=== PATIENT | male | born 1965 | race Caucasian/White ===

== ENCOUNTER 2016-11-11 09:31 | Emergency (ER) | payer OTHER ==
[~2016-11-11] VITALS: Ht 177.8 cm; Wt 100.0 kg
[~2016-11-11 09:31] MED LIST: CHLO25CA2 PO
[2016-11-11 09:33] VITALS: BP 130/67; PULSE 90; RESP 16; TEMP 98.3; O2SAT 95
--- NOTE | 2016-11-11 10:53 | PD ---
HPI Chief Complaint: Cold / Flu Symptoms Time Seen by Provider: 10:05 Travel History International Travel<30 days: No Contact w/Intl Traveler<30days: No Traveled to known affect area: No History of Present Illness HPI This is a 50-year-old male who presents to the emergency department with cough for 5 days, fevers and chills, body aches and muscle pains. Patient reports that he has been feeling very weak and fatigued. Over the weekend he tried to go out and ended up passing out twice. [facility] came to evaluate him that he said he felt fine and just wanted to go home and rest. Today he continues to feel sick. He says he's been up coughing all night. He has some brown sputum production. He denies any sore throat or rhinorrhea. He denies any diarrhea or vomiting. He does smoke cigarettes. [facility] Past Medical History Medical History: Denies Significant Hx Diminished Hearing: No Tetanus Vaccination: < 5 Years Influenza Vaccination: No Social History Alcohol Use: No (QUIT 1 1/2 YRS AGO) Tobacco Use: Yes (1 PPD) Substance Use: No Allergies-Medications (Allergen,Severity, Reaction): Coded Allergies: Penicillin (Verified Allergy, Unknown, 11/11/16) told as child Reported Meds & Prescriptions Reported Meds & Active Scripts Active No Active Prescriptions or Reported Medications Review of Systems Except as stated in HPI: all other systems reviewed are Neg Physical Exam Narrative GENERAL:Well appearing, no acute distress SKIN: Warm and dry. HEAD: Atraumatic. Normocephalic. EYES: Pupils equal and round. No injection or drainage. ENT: Moist mucous membranes NECK: Trachea midline. CARDIOVASCULAR: Regular rate and rhythm. No murmur appreciated. RESPIRATORY: Clear to auscultation. Breath sounds equal bilaterally. GASTROINTESTINAL: Abdomen soft, non-tender, nondistended. MUSCULOSKELETAL: No obvious deformities. NEUROLOGICAL: Awake and alert. No obvious cranial nerve deficits. Moving all extremities. PSYCHIATRIC: Appropriate mood and affect; insight and judgment normal. Data Data Last Documented VS Vital Signs Date Time Temp Pulse Resp B/P Pulse Ox O2 Delivery O2 Flow Rate FiO2 11/11/16 11:32 60 18 121/72 96 11/11/16 09:33 98.3 Orders Electrocardiogram (11/11/16 ) Complete Blood Count With Diff (11/11/16 10:51) Basic Metabolic Panel (Bmp) (11/11/16 10:51) Sodium Chlor 0.9% 1000 Ml Inj (Ns 1000 M (11/11/16 11:00) Sodium Chlor 0.9% 1000 Ml Inj (Ns 1000 M (11/11/16 11:00) Ketorolac Inj (Toradol Inj) (11/11/16 11:00) Labs Laboratory Tests Test 11/11/16 10:50 White Blood Count 2.6 TH/MM3 Red Blood Count 4.54 MIL/MM3 Hemoglobin 14.7 GM/DL Hematocrit 41.7 % Mean Corpuscular Volume 91.9 FL Mean Corpuscular Hemoglobin 32.4 PG Mean Corpuscular Hemoglobin 35.2 % Concent Red Cell Distribution Width 12.6 % Platelet Count 196 TH/MM3 Mean Platelet Volume 7.8 FL Neutrophils (%) (Auto) 30.1 % Lymphocytes (%) (Auto) 57.6 % Monocytes (%) (Auto) 11.3 % Eosinophils (%) (Auto) 0.4 % Basophils (%) (Auto) 0.6 % Neutrophils # (Auto) 0.8 TH/MM3 Lymphocytes # (Auto) 1.5 TH/MM3 Monocytes # (Auto) 0.3 TH/MM3 Eosinophils # (Auto) 0.0 TH/MM3 Basophils # (Auto) 0.0 TH/MM3 CBC Comment AUTO DIFF Differential Total Cells 100 Counted Neutrophils % (Manual) 28 % Band Neutrophils % 2 % Lymphocytes % 62 % Monocytes % 8 % Neutrophils # (Manual) 0.8 TH/MM3 Differential Comment FINAL DIFF MANUAL Platelet Estimate NORMAL Platelet Morphology Comment NORMAL Red Cell Morphology Comment NORMAL Sodium Level 137 MEQ/L Potassium Level 3.7 MEQ/L Chloride Level 102 MEQ/L Carbon Dioxide Level 26.3 MEQ/L Anion Gap 9 MEQ/L Blood Urea Nitrogen 8 MG/DL Creatinine 0.77 MG/DL Estimat Glomerular Filtration 107 ML/MIN Rate Random Glucose 78 MG/DL Calcium Level 8.4 MG/DL [facility] Medical Decision Making Medical Screen Exam Complete: Yes Emergency Medical Condition: Yes Interpretation(s) Afebrile, no tachycardia, normotensive Leukopenia 62% lymphocytes Electrolytes are reassuring Differential Diagnosis Viral syndrome, influenza, pneumonia, bronchitis, lymphoma, leukemia Narrative Course This is a 50-year-old male who presents to the emergency department having had myalgias, fevers, chills and cough for 5 days associated with 2 episodes of syncope over the weekend. He was placed on a monitor and an IV was established. He was given 2 L of IV hydration. EKG was reassuring. Labs demonstrate some leukopenia with a lymphocytic predominance. I think this is just in the setting of a viral syndrome however it is not impossible that the patient has an underlying hematologic malignancy. I discussed this with the patient and urged him to follow-up with a primary care physician for repeat labs in 1-2 weeks when his symptoms resolved. Patient will be discharged home. Diagnosis Primary Impression: Viral syndrome Patient Instructions: General Instructions Additional Instructions: If you develop severe chest pain, shortness of breath, sweating, lightheadedness , dizziness or difficulty breathing return to the emergency department immediately. Follow-up with your primary care physician in one to 2 weeks for repeat blood work to check your white blood cell count. Med/Other Pt SpecificInfo: Prescription(s) given Scripts Albuterol 6.7 GM Inh (Proventil Hfa 6.7 GM Inh)90 Mcg/Act Aer2 Puff INH Q4-6H PRN (SHORTNESS OF BREATH) #1 INHALER Ref 0 Prov:Charis Carmona MD 11/11/16 Promethazine-Codeine Liq 6.25-10 Mg/5 Ml Syrp5 Ml PO Q4H PRN (COUGH AND/OR COLD SYMPTOMS) #120 ML Prov:Charis Carmona MD 11/11/16 Disposition: 01 DISCHARGE HOME Condition: Stable Charis Carmona MD Nov 11, 2016 10:53
[2016-11-11] MEDS ORDERED: KETOROLAC TROMETHAMINE 30 MG/ML (IVP) VIAL IV PUSH ONE (11:00)
[2016-11-11] MEDS ORDERED: SODIUM CHLOR 0.9% 1000 ML INJ 1,000 ML IV ONE ×2 (11:00)
[2016-11-11 11:14] LABS: AUTOMATED NEUTROPHIL # 0.8 TH/MM3 (1.8-7.7); BASOPHIL % 0.6 % (0.0-2.0); EOSINOPHIL % 0.4 % (0.0-4.0); HEMATOCRIT 41.7 % (39.0-51.0); LYMPH % 57.6 % (9.0-44.0); LYMPHOCYTE # 1.5 TH/MM3 (1.0-4.8); MEAN CELL VOLUME 91.9 FL (80.0-100.0); MEAN CORPUSCULAR HEMOGLOBIN 32.4 PG (27.0-34.0); MEAN CORPUSCULAR HGB CONC 35.2 % (32.0-36.0); MONO % 11.3 % (0.0-8.0); NEUT % 30.1 % (16.0-70.0); PLATELET COUNT 196 TH/MM3 (150-450); RED BLOOD COUNT 4.54 MIL/MM3 (4.50-5.90); RED CELL DISTRIBUTION WIDTH 12.6 % (11.6-17.2); WHITE BLOOD COUNT 2.6 TH/MM3 (4.0-11.0)
[2016-11-11 11:19] LABS: HEMO FLAGS AUTO DIFF
[2016-11-11 11:29] LABS: BICARBONATE 26.3 MEQ/L (21.0-32.0); POTASSIUM 3.7 MEQ/L (3.5-5.1)
[2016-11-11 11:32] VITALS: BP 121/72; PULSE 60; RESP 18; O2SAT 96
[2016-11-11 11:50] LABS: BANDS 2 % (0-6); NEUTROPHIL # MANUAL DIFF 0.8 TH/MM3 (1.8-7.7); PLATELET ESTIMATE SMEAR NORMAL (NORMAL); PLATELET MORPHOLOGY NORMAL (NORMAL); POLYS (SEG NEUTROPHILS) 28 % (16-70); SCAN/DIFF FINAL DIFF MANUAL; WBC DIFF SAMPLE 100
[2016-11-11] MEDS ORDERED: ALBU6.7H INH (12:01)
[2016-11-11] MEDS ORDERED: PROM6.256 PO (12:01)
[2016-11-11 12:04] VITALS: BP 126/84; PULSE 61; RESP 20; O2SAT 97
--- NOTE | 2016-11-11 18:21 | EKG ---
Date Performed: 11/11/2016 Time Performed: 10:34:47 PTAGE: 50 years EKG: Sinus rhythm Since previous tracing, no significant change noted NORMAL ECG PREVIOUS TRACING : 04/06/2015 12.56 DOCTOR: Cesia Pérez Interpretating Date/Time 11/11/2016 18:19:18
== END 2016-11-11 12:42 | disposition home or self-care (01) ==
LOC: NEPC 09:31
DX: B34.9 Viral infection, unspecified (principal); R53.83 Other fatigue; R55 Syncope and collapse; D72.819 Decreased white blood cell count, unspecified; F17.200 Nicotine dependence, unspecified, uncomplicated
CPT/HCPCS: 80048; 85007; 85027; 93005; 96361; 96374; 99283; J1885; J7030

== ENCOUNTER 2017-09-29 07:00 | Inpatient (IN) | payer OTHER ==
[~2017-09-29] VITALS: Ht 177.8 cm; Wt 98.8 kg
[2017-10-10] MEDS ORDERED: TRAM50TA PO (09:32)
[2017-10-27] MEDS ORDERED: SODIUM CHLORID 0.9% 500 ML IV PRN (08:00)
[2017-10-27] MEDS ORDERED: INSULIN HUMAN REGULAR 1,000 UNITS/10 ML VIAL SQ PRN (08:00)
[2017-10-27] MEDS ORDERED: POVIDONE IODINE 7.5% SCRUB 118 ML BOTTLE TOPICAL SCH (08:00)
[2017-10-27] MEDS ORDERED: CHLORHEXIDINE GLUCONATE 4% SOLN 120 ML BTL TOPICAL SCH (08:00)
[2017-10-27] MEDS ORDERED: TRANEXAMIC PERI-ARTICULAR 3,000 MG/NS 100 ML P-ARTICULR SCH ×2 (08:00)
[2017-10-27] MEDS ORDERED: CHLORHEXIDINE GLUCONATE 2 % 1 PACK (2 CLOTHS) TOPICAL PRN (08:00)
[2017-10-27] MEDS ORDERED: METOPROLOL TARTRATE 25 MG TAB PO PRN (08:00)
[2017-10-27] MEDS ORDERED: LACTATED RINGER'S 1000 ML IV PRN (08:00)
[2017-10-27] MEDS ORDERED: EXPAREL PERI-ARTICULAR INJECTION (TOTAL VOL. 60 ML) P-ARTICULR SCH ×2 (08:00)
[2017-10-27] MEDS ORDERED: TRANEXAMIC ACID IV SCH (08:00)
[2017-10-27] MEDS ORDERED: SODIUM CHLORIDE 0.9% IV SCH (08:00)
[2017-10-27] MEDS ORDERED: POVIDONE IODINE 5% (ANTISEPSIS KIT) 4 APPLICATIONS EACH NARE PRN (08:00)
[2017-10-27] MEDS ORDERED: DEXAMETHASONE SOD PHOS 20 MG/5 ML VIAL IV SCH (08:00)
[2017-10-27] MEDS ORDERED: VANCOMYCIN 1000 MG/NS 250 ML (for <70 kg) IV SCH ×2 (08:00)
[2017-10-27] MEDS ORDERED: GENTAMICIN SULFATE 80 MG/2 ML VIAL ONE (08:12)
[2017-10-27] MEDS ORDERED: BISACODYL 10 MG SUPP RECTAL PRN (08:30)
[2017-10-27] MEDS ORDERED: ACETAMINOPHEN/HYDROcodone 325 MG/7.5 MG TAB PO PRN (08:30)
[2017-10-27] MEDS ORDERED: ZOLPIDEM TARTRATE 5 MG TAB PO PRN (08:30)
[2017-10-27] MEDS ORDERED: ONDANSETRON HCL 4 MG/2 ML VIAL IVP PRN (08:30)
[2017-10-27] MEDS ORDERED: diphenhydrAMINE HCL 50 MG/ML VIAL IV PUSH PRN (08:30)
[2017-10-27] MEDS ORDERED: HYDR-3288 PO (08:32)
[2017-10-27] MEDS ORDERED: ENOX40P SQ (08:32)
[2017-10-27] MEDS ORDERED: ASPI81CH6 CHEW (08:33)
[2017-10-27] MEDS ORDERED: SODIUM CHLORIDE 0.9% INJ 100 ML ONE (08:50)
[2017-10-27] MEDS ORDERED: ACETAMINOPHEN 1000 MG/100 ML 100 ML IV ONE (08:56)
[2017-10-27] MEDS ORDERED: CLINDAMYCIN 900 MG/NS 100 ML IV SCH ×2 (09:00)
[2017-10-27] MEDS ORDERED: FAMOTIDINE 20 MG/2 ML VIAL ONE (09:16)
--- NOTE | 2017-10-27 11:33 | PD.CONS ---
HPI Service [facility] Hospitalists Consult Requested By Dr. Kevin Sawyer Reason for Consult Medical management Primary Care Physician Nash Garcia MD Diagnoses: History of Present Illness Mr. Ross is a pleasant 51 y/o male with osteoarthritis and lumbar degenerative disc disease. He was admitted to [facility] on 10/27/17 for left total hip arthroplasty with Dr. Sawyer. The [facility] Hospitalist team was consulted to help with medical management. Pt is seen post-operatively. Past Family Social History Past Medical History Osteoarthritis Lumbar degenerative disc disease with radiculopathy Tobacco use Hx of alcohol abuse, none for 2 years Past Surgical History Left hip surgery x 2 Reported Medications Tramadol 50 Mg PO Q6H PRN Allergies: Coded Allergies: penicillin G (Verified Allergy, Unknown, 10/27/17) told as child Family History Mother with hx of lung cancer Father with hx of CAD Social History Hx of alcohol abuse, none for the last 2 years (+)Tobacco use, 1/2-1ppd x 30+ years Denies any illicit drug use Physical Exam Vital Signs Vital Signs Date Time Temp Pulse Resp B/P (MAP) Pulse Ox O2 Delivery O2 Flow Rate FiO2 10/27/17 07:40 98.4 62 20 139/84 (102) 96 Physical Exam GENERAL: This is a well-nourished, well-developed patient, in no apparent distress. HEENT: Atraumatic. Normocephalic. No temporal or scalp tenderness. No scleral icterus. Airway patent. NECK: Trachea midline, supple, nontender. CARDIO: Regular. RESP: CTA bilaterally. No wheezes, rales, or rhonchi. ABD: +BS, soft, non-tender, nondistended. EXT: Left hip bandages are c/d/i NEURO: Awake and alert. Motor and sensory grossly within normal limits. Normal speech. Assessment and Plan Problem List: (1) Primary localized osteoarthrosis, pelvic region and thigh ICD Codes: M16.10 - Unilateral primary osteoarthritis, unspecified hip Status: Chronic Plan: - Pt is a 51 y/o male with primary osteoarthritis and chronic back pain - He was admitted to [facility] on 10/27/17 for left total hip arthroplasty with Dr. Sawyer - Post-op pain control per Ortho - IS every hour while awake - PT daily - Constipation precautions - Offered nicotine patch to the pt - DVT prophylaxis with Lovenox Tracie Meade Oct 27, 2017 11:33
[2017-10-27] MEDS ORDERED: Post-op Orders (for Pharmacy) XX ONE (11:43)
--- NOTE | 2017-10-27 11:45 | HHI.DCPOC ---
Discharge Care Plan Diagnosis: (1) Primary localized osteoarthrosis, pelvic region and thigh Your Health Problems Are: Difficulty with ADL Goals to Promote Your Health * To prevent worsening of your condition and complications * To maintain your health at the optimal level Directions to Meet Your Goals Take your medications as prescribed Follow your dietary instruction Follow activity as directed Keep your appointments as scheduled Take your immunizations and boosters as scheduled If your symptoms worsen call your PCP, if no PCP go to Urgent Care Center or Emergency Room Smoking is Dangerous to Your Health. Avoid second hand smoke Call the 24-hour hour crisis hotline for domestic abuse at Kevin Potts Oct 27, 2017 11:45
--- NOTE | 2017-10-27 11:46 | HHI.FF ---
Face to Face Verification Diagnosis: (1) Primary localized osteoarthrosis, pelvic region and thigh Physical Therapy Gait training, Safety evaluation, Transfer training, bed to chair Hip: Total hip, Protocol: Left Left LE Weight Bearing: WB as tolerated Nursing RN: 3 days/week x 2 weeks Nursing: Isaac teaching, Dressing changes Dressing Changes: Daily dressing change Additional Instructions ok to maintain dressing unless saturated, then daily dressing changes I have seen patient Frantz Ross on 10/27/17. My clinical findings support the need for the requested home health care services because: Limited ability to care for self High risk of falls I certify that my clinical findings support that this patient is homebound because: Post-op weakness Unsteady gait/balance Kevin Potts Oct 27, 2017 11:46
[2017-10-27] MEDS ORDERED: DO NOT ADM ANY ANTICOAGULANT DRUGS PRN (11:48)
[2017-10-27] MEDS ORDERED: MIDAZOLAM HCL 2 MG/2 ML VIAL ONE (11:55)
[2017-10-27] MEDS: SODIUM CHLOR 0.9% 1000 ML INJ 1,000 ML IV SCH ×2 (12:00→23:00)
--- NOTE | 2017-10-27 12:19 | MP ---
cc: CATRINA AGUILAR M.D. DATE OF SURGERY: 10/27/2017 PREOPERATIVE DIAGNOSIS Left hip osteoarthritis. POSTOPERATIVE DIAGNOSIS Left hip osteoarthritis. PROCEDURE Left total hip arthroplasty. SURGEON Dr. Catrina Aguilar. LOCAL SALES ASSOCIATE ARIANA Elaine. ANESTHESIA General. ESTIMATED BLOOD LOSS 300 cc. COMPLICATIONS None. IMPLANTS USED DePuy Corail, size 12 Press-Fit standard offset femoral stem, size 54 solid [place] Gription cup, size 36 mm neutral highly crosslinked polyethylene liner, size 36 mm ceramic head, +5 neck. JUSTIFICATION This patient is a 51-year-old male with a history of severe osteoarthritis involving the left hip. He has severe disabling pain with standing, walking, ambulation, weightbearing activities and even severe pain at rest. He has failed greater than three months of nonoperative conservative treatment to include medication therapy, injections, ambulatory assisted aids, home exercise program and activity modification. X-rays of the left hip reveal severe end-stage osteoarthritis with [id number] joint space narrowing, subchondral sclerosis, subchondral cysts, osteophyte formation with subluxation. The patient was counseled as to the risks, benefits and alternatives to a total hip arthroplasty. The risks were discussed which include but not limited to anesthesia, bleeding, infection, damage to nerves and blood vessels, pain, stiffness, fracture-dislocation, left length discrepancies, blood clots, pulmonary embolism and even . The patient's pain is severe. He favored the benefits over the risks did wish to proceed with surgery. PROCEDURE IN DETAIL A written consent was obtained. The patient was identified by name, taken to the operating room and placed supine on the operating table. General anesthesia was administered as well as two grams of IV Ancef and one gram of IV vancomycin. The left and right feet were placed in padded traction boots. All bony prominences and pressure points were well-padded. The left hip and left lower extremity were prepped and draped using isopropyl alcohol, Hibiclens solution and ChloraPrep solution. After a timeout was performed a longitudinal incision was made over the anterolateral aspect of the left hip. The fascial layer was incised. Dissection was carried over the tensor fascia trinity beneath the rectus femoris to allow exposure of the anterior capsule. A capsulotomy incision was performed. An oscillating saw was used to perform a femoral neck cut. The osteoarthritic femoral head and neck couple was removed. A 10 blade scalpel was used to excise the labrum. Sequential reaming began at size 49 and was carried through to size 54. Subsequently a solid [place] Gription cup was implanted to approximately 45 degrees of abduction and 10 degrees of anteversion. There was good purchase and fixation after insertion of the cup. A screw hole eliminator was placed followed by the neutral polyethylene liner. The liner was impacted in place and tested for stability. Attention was turned to the femur where the leg was externally rotated, extended and adducted. The capsule was released off the undersurface of the greater trochanter to allow for elevation and lateralization of the femur. A box cutting osteotome was used to gain entrance into the intramedullary canal of the femur followed by canal finder and sequential broaching up to size 12. A calcar planar was used to plane the calcar. Trial head and neck combinations were evaluated and final components were then implanted. With the current components the leg could achieve external rotation to 70 degrees and extension all the down to the ground without evidence of anterior instability or impingement. Soft tissue tension felt appropriate. Fluoroscopic imaging showed appropriate implantation of components. The surgical wound was thoroughly irrigated with sterile saline pulse lavage antibiotic-impregnated solution. The fascial layer was closed with #1 Vicryl suture, the subcutaneous layer with 2-0 Vicryl suture, and skin was closed with Dermabond. Sterile dressing was applied. The patient tolerated the procedure well with no intraoperative complications noted. Jayy Potts, physician promotional advertising assistant certified, was present during the entire procedure to include patient positioning and the procedure itself. The medical necessity of a physician promotional advertising assistant was indicated in this case due to the complexity of the procedue. He assisted with appropriate manipulation of the leg and also retraction of muscle, tendon, bone and neurovascular structures. He assisted with preparation of bone and also implantation of the prosthetic replacement. MD DOMENICO Islas/JADEN /11:17 AM /12:01 PM
[2017-10-27] MEDS ORDERED: *morphine SULFATE 8 MG/ML PERIprocedure ONLY ONE ×2 (12:56→13:57)
--- NOTE | 2017-10-27 13:14 | RADRPT ---
EXAM DATE/TIME: 10/27/2017 12:27 [facility] COMPARISON: No previous studies available for comparison. INDICATIONS : Post op left hip arthroplasty. MEDICAL HISTORY : None. SURGICAL HISTORY : Left hip surgery. ENCOUNTER: Initial ACUITY: 1 day PAIN SCORE: 4/10 LOCATION: Left hip FINDINGS: The patient is status post a total hip arthroplasty with a bipolar prosthesis. Prosthesis is well-[place] michael. Alignment is anatomic. A fracture is not appreciated. CONCLUSION: Anatomic alignment. Jas Sow MD FACR Jas Sow MD FACR on October 27, 2017 at 13:10 Board Certified Radiologist. This report was verified electronically.
--- NOTE | 2017-10-27 13:24 | RADRPT ---
EXAM DATE/TIME: 10/27/2017 09:59 [facility] COMPARISON: No previous studies available for comparison. INDICATIONS : Left total hip replacement in OR. MEDICAL HISTORY : None. SURGICAL HISTORY : None. ENCOUNTER: Initial ACUITY: 1 day PAIN SCORE: Non-responsive. LOCATION: Left hip FINDINGS: 2 views of the hip reveal a total hip prosthesis in good position. No fracture or dislocation is obse rved. A small amount of air is seen within the joint. Soft tissue swelling is noted. CONCLUSION: Total hip prosthesis in good position. Mauricio Williamson Jr., MD on October 27, 2017 at 13:21 Board Certified Radiologist. This report was verified electronically.
[2017-10-27] MEDS: ACETAMINOPHEN/HYDROcodone 325 MG/7.5 MG TAB PO PRN ×2 (14:48→19:18)
[2017-10-27 15:00] VITALS: BP 137/58; PULSE 89; RESP 16; TEMP 95.5; O2SAT 94
[2017-10-27] MEDS: MORPHINE SULFATE 2 MG/ML INJ IV PUSH PRN ×2 (16:06→20:54)
[2017-10-27] MEDS ORDERED: COMMODE 3-IN-11 MIS (17:27)
[2017-10-27] MEDS ORDERED: WALKER WHEELS/F1 MIS (17:27)
[2017-10-27] MEDS: CLINDAMYCIN 900 MG/NS PREMIX 50 ML IV SCH (17:50)
[2017-10-27 20:00] VITALS: BP 127/67; PULSE 78; RESP 22; TEMP 98.6; O2SAT 96
[2017-10-28] VITALS: BP 96/54; PULSE 66; RESP 20; TEMP 98.3; O2SAT 95
[2017-10-28] MEDS: CLINDAMYCIN 900 MG/NS PREMIX 50 ML IV SCH ×2 (01:00→08:44)
[2017-10-28 04:00] VITALS: PULSE 79; RESP 20; TEMP 98.5; O2SAT 95
[2017-10-28 04:16] VITALS: BP 112/57; PULSE 56
[2017-10-28 08:00] VITALS: BP 114/68; PULSE 57; RESP 16; TEMP 96.9; O2SAT 97
--- NOTE | 2017-10-28 08:29 | PD.ORT.PN ---
Subjective Post Op Day #: 1 Subjective Remarks pain tolerable Objective Vitals Vital Signs Date Time Temp Pulse Resp B/P (MAP) Pulse Ox O2 Delivery O2 Flow Rate FiO2 10/28/17 04:16 56 112/57 (75) 10/28/17 04:00 98.5 79 20 95 10/28/17 00:00 98.3 66 20 96/54 (68) 95 10/27/17 20:00 98.6 78 22 127/67 (87) 96 10/27/17 15:00 95.5 89 16 137/58 (84) 94 10/27/17 14:10 97.6 65 16 111/62 (78) 94 Room Air 10/27/17 14:00 67 16 115/64 (81) 94 Room Air 10/27/17 13:30 69 15 114/63 (80) 93 Room Air 10/27/17 13:00 72 15 116/60 (78) 93 Room Air 10/27/17 12:45 97.5 78 15 119/63 (81) 98 Nasal Cannula 2 10/27/17 12:30 82 15 125/60 (81) 98 Nasal Cannula 3 10/27/17 12:15 80 15 124/66 (85) 97 Nasal Cannula 3 10/27/17 12:00 82 15 121/62 (81) 95 Nasal Cannula 3 10/27/17 11:45 98.0 85 22 115/66 (82) 94 Nasal Cannula 3 I/O 10/27/17 10/27/17 10/27/17 10/28/17 10/28/17 10/28/17 07:00 15:00 23:00 07:00 15:00 23:00 Intake Total 1725 ml Output Total 1000 ml Balance 725 ml Intake IV Total 1725 ml Output Urine Total 700 ml Estimated Blood Loss 300 ml # Voids 2 Imaging Last 24 hours Impressions Hip and Pelvis X-Ray 10/27/17 0830 Signed Impressions: Service Date/Time: Friday, October 27, 2017 12:27 - CONCLUSION: Anatomic alignment. Jas Sow MD Objective Remarks in chair, nad dressing c/d/i thigh soft neg homans nvi Assessment & Plan Ortho Post Op Day #: 1 Problem List: Assessment and Plan s/p L LEIDY anterior approach wbat ok to maintain dressing unless saturated lovenox d/c planning home - going to start OP PT rx in chart f/up dr. [place] 2 weeks Kevin Potts Oct 28, 2017 08:29
[2017-10-28 08:31] LABS: HEMATOCRIT 31.2 % (39.0-51.0); MEAN CELL VOLUME 90.6 FL (80.0-100.0); MEAN CORPUSCULAR HEMOGLOBIN 31.9 PG (27.0-34.0); MEAN CORPUSCULAR HGB CONC 35.2 % (32.0-36.0); PLATELET COUNT 286 TH/MM3 (150-450); RED BLOOD COUNT 3.45 MIL/MM3 (4.50-5.90); RED CELL DISTRIBUTION WIDTH 12.6 % (11.6-17.2); REVIEW FLAG FINAL; WHITE BLOOD COUNT 14.7 TH/MM3 (4.0-11.0)
[2017-10-28] MEDS: ACETAMINOPHEN/HYDROcodone 325 MG/7.5 MG TAB PO PRN ×2 (08:43→13:16)
[2017-10-28] MEDS: SODIUM CHLOR 0.9% 1000 ML INJ 1,000 ML IV SCH (08:45)
[2017-10-28] MEDS: MORPHINE SULFATE 2 MG/ML INJ IV PUSH PRN (10:02)
[2017-10-28] MEDS ORDERED: ENOXAPARIN SODIUM 40 MG/0.4 ML SYRINGE SQ SCH (11:00)
[2017-10-28] MEDS ORDERED: MAGNESIUM HYDROXIDE SUSP 30 ML CUP PO PRN (11:15)
[2017-10-28] MEDS ORDERED: SENNOSIDES 8.6 MG TAB PO PRN (11:15)
[2017-10-28] MEDS ORDERED: BISACODYL 10 MG SUPP RECTAL PRN (11:15)
[2017-10-28] MEDS ORDERED: DOCUSATE SODIUM 100 MG CAP PO SCH (21:00)
[2017-10-28] MEDS ORDERED: MULTIVITAMINS/MINERALS THERAPEUTIC TAB PO SCH (21:00)
== END 2017-10-28 13:29 | disposition home or self-care (01) | DRG 470 ==
LOC: HSDI 10-27 06:56 → N06A 10-27 14:26
PROVIDERS: ADMIT Orthopaedic Surgery Sports Medicine; ATTEND Orthopaedic Surgery Sports Medicine
PROC: 0SRB04A Replacement of Left Hip Joint with Ceramic on Polyethylene Synthetic Substitute, Uncemented, Open Approach (ICD-10-PCS; principal; 2017-10-27 09:35)
DX: M16.12 Unilateral primary osteoarthritis, left hip (principal); G89.29 Other chronic pain; M54.9 Dorsalgia, unspecified; Z72.0 Tobacco use; M51.36 Other intervertebral disc degeneration, lumbar region; M51.16 Intervertebral disc disorders with radiculopathy, lumbar region
CPT/HCPCS: 73502; 76000; 85027; 86850; 86900; 86901; 94150; C1776; C9290; J0131; J1100; J1580; J1650; J2250; J2270; J3010; J3370; J7030; J7050; J7120

== ENCOUNTER → 2017-10-10 | Outpatient (CLI) | payer OTHER ==
[~2017-10-10] MED LIST changes: +ALBU6.7H INH; -CHLO25CA2 PO; +PROM6.256 PO; +TRAM50TA PO
--- NOTE | 2017-10-10 16:01 | EKG ---
Date Performed: 10/10/2017 Time Performed: 09:47:24 PTAGE: 51 years EKG: Sinus rhythm NORMAL ECG NO PREVIOUS TRACING DOCTOR: Cesia Pérez Interpretating Date/Time 10/10/2017 16:00:03
== END ==
LOC: CPRE 08:57
PROVIDERS: ATTEND Orthopaedic Surgery Sports Medicine
DX: Z01.810 Encounter for preprocedural cardiovascular examination (principal)
CPT/HCPCS: 93005